=== PATIENT | female | born 1995 | race Caucasian/White ===

== ENCOUNTER 2019-01-19 11:46 | Emergency (ER) | payer MEDICAID, OTHER ==
[~2019-01-19] VITALS: Ht 165.1 cm; Wt 65.0 kg
[2019-01-19] MEDS ORDERED: ALBUTEROL (0.083%) 2.5MG/3ML NEB HHN STA (15:52)
[2019-01-19] MEDS ORDERED: PREDNISONE 20MG TABLET PO STA (15:52)
[2019-01-19] MEDS ORDERED: IPRATROPIUM BROMIDE (0.02%) 0.5MG/2.5ML NEB HHN STA (15:52)
[2019-01-19 17:15] VITALS: BP 147/79
== END 2019-01-19 17:44 | disposition home or self-care (01) ==
LOC: ER 11:46
DX: J45.901 Unspecified asthma with (acute) exacerbation (principal); J20.9 Acute bronchitis, unspecified
CPT/HCPCS: 71045; 81025; 99283; J7512; J7611